=== PATIENT | female | born 1950 | race Caucasian/White ===

== ENCOUNTER 2018-01-04 15:12 | Inpatient (IN) | payer MEDICARE, OTHER ==
[~2018-01-04] VITALS: Ht 167.6 cm; Wt 58.5 kg
[2018-01-04] MEDS ORDERED: fentaNYL CITR 100 MCG/2 ML AMP IVP ONE ×2 (15:40→16:35)
--- NOTE | 2018-01-04 15:40 | ER Report ---
History and Physical Time Seen By MD: 15:25 Hx. of Stated Complaint: PT WAS AT THE [place] [employer] AND FELL ONTO THE LEFT HIP. PT THEN WALKED AND GOT ONTO THE PLANE TO [place]. PT HAVING MUSCLE SPASMS AND PAIN IN THE LEFT SIDE. HPI/ROS CHIEF COMPLAINT: Left hip pain HISTORY OF PRESENT ILLNESS: 67-year-old female who fell in [facility] got up ambulated into the plane had severe pain to her left hip flew back to [place] where she maintains severe pain in her left hip the plane was able to barely ambulatory to wheelchair with a took her to the emergency room patient states she had a mechanical fall slipped while in the airport no head or neck trauma she has pain with extension flexion rotation of the hips left hip only no additional complaints noted REVIEW OF SYSTEMS: Respiratory: No cough, no dyspnea. Cardiovascular: No chest pain, no palpitations. Gastrointestinal: No vomiting, no abdominal pain. Musculoskeletal: Left hip pain Remainder of the 14 system rev: Yes Allergies: Coded Allergies: Penicillins (Verified Allergy, Intermediate, 01/04/18) Reviewed Nurses Notes: Yes Old Medical Records Reviewed: Yes Constitutional Vital Sign - Last 24 Hours 01/04/18 15:33 Temp 98.3 Pulse 98 Resp 18 B/P (MAP) 180/115 Pulse Ox 94 O2 Delivery Room Air Physical Exam General Appearance: The patient is alert, has no immediate need for airway protection and no current signs of toxicity. [ ] Eyes: Pupils equal and round no injection. Respiratory: Chest is non tender, lungs are clear to auscultation. Cardiac: regular rate and rhythm [ ] Gastrointestinal: Abdomen is soft and non tender, no masses, bowel sounds normal. Musculoskeletal: Left hip examination leg is extended shortened and externally rotated pain with extension flexion rotation of the left hip otherwise normal neurovascular intact unremarkable exam Neck is supple and non tender. Normal other than detailed above Skin: No rashes or lesions. [ ] DIFFERENTIAL DIAGNOSIS: After history and physical exam differential diagnosis was considered for left hip fracture Medical Decision Making Data Points Result Diagram: 01/04/18 1550 01/04/18 1550 Laboratory Hematology Test 01/04/18 15:50 Red Blood Count 3.49 M/uL (4.17-5.56) Mean Corpuscular Volume 95.8 fL (80.0-96.0) Mean Corpuscular Hemoglobin 33.5 pg (26.0-33.0) Mean Corpuscular Hemoglobin Concent 34.9 g/dL (32.0-36.0) Red Cell Distribution Width 14.1 % (11.5-14.5) Mean Platelet Volume 8.1 fL (7.2-11.1) Neutrophils (%) (Auto) 66.1 % (39.4-72.5) Lymphocytes (%) (Auto) 21.5 % (17.6-49.6) Monocytes (%) (Auto) 10.6 % (4.1-12.4) Eosinophils (%) (Auto) 0.8 % (0.4-6.7) Basophils (%) (Auto) 1.0 % (0.3-1.4) Nucleated RBC Relative Count (auto) 0.0 /100WBC Neutrophils # (Auto) 3.4 K/uL (2.0-7.4) Lymphocytes # (Auto) 1.1 K/uL (1.3-3.6) Monocytes # (Auto) 0.5 K/uL (0.3-1.0) Eosinophils # (Auto) 0.0 K/uL (0.0-0.5) Basophils # (Auto) 0.0 K/uL (0.0-0.1) Nucleated RBC Absolute Count (auto) 0.00 K/uL Sodium Level 134 mmol/L (137-145) Potassium Level 4.0 mmol/L (3.5-5.0) Chloride Level 95 mmol/L (98-107) Carbon Dioxide Level 29 mmol/L (22-31) Blood Urea Nitrogen 18 mg/dl (7-18) Creatinine 0.90 mg/dl (0.52-1.04) Glomerular Filtration Rate Calc > 60.0 Random Glucose 117 mg/dl (75-110) Calcium Level 9.6 mg/dl (8.4-10.2) Total Bilirubin 0.9 mg/dl (0.2-1.3) Aspartate Amino Transf (AST/SGOT) 53 U/L (0-35) Alanine Aminotransferase (ALT/SGPT) 29 U/L (0-56) Alkaline Phosphatase 112 U/L (0-126) Total Protein 7.5 g/dl (6.3-8.2) Albumin 4.7 g/dl (3.5-5.0) Chemistry Test 01/04/18 15:50 White Blood Count 5.1 k/uL (4.5-11.0) Red Blood Count 3.49 M/uL (4.17-5.56) Hemoglobin 11.7 g/dL (12.0-16.0) Hematocrit 33.5 % (34.0-47.0) Mean Corpuscular Volume 95.8 fL (80.0-96.0) Mean Corpuscular Hemoglobin 33.5 pg (26.0-33.0) Mean Corpuscular Hemoglobin Concent 34.9 g/dL (32.0-36.0) Red Cell Distribution Width 14.1 % (11.5-14.5) Platelet Count 183 K/uL (150-450) Mean Platelet Volume 8.1 fL (7.2-11.1) Neutrophils (%) (Auto) 66.1 % (39.4-72.5) Lymphocytes (%) (Auto) 21.5 % (17.6-49.6) Monocytes (%) (Auto) 10.6 % (4.1-12.4) Eosinophils (%) (Auto) 0.8 % (0.4-6.7) Basophils (%) (Auto) 1.0 % (0.3-1.4) Nucleated RBC Relative Count (auto) 0.0 /100WBC Neutrophils # (Auto) 3.4 K/uL (2.0-7.4) Lymphocytes # (Auto) 1.1 K/uL (1.3-3.6) Monocytes # (Auto) 0.5 K/uL (0.3-1.0) Eosinophils # (Auto) 0.0 K/uL (0.0-0.5) Basophils # (Auto) 0.0 K/uL (0.0-0.1) Nucleated RBC Absolute Count (auto) 0.00 K/uL Glomerular Filtration Rate Calc > 60.0 Calcium Level 9.6 mg/dl (8.4-10.2) Total Bilirubin 0.9 mg/dl (0.2-1.3) Aspartate Amino Transf (AST/SGOT) 53 U/L (0-35) Alanine Aminotransferase (ALT/SGPT) 29 U/L (0-56) Alkaline Phosphatase 112 U/L (0-126) Total Protein 7.5 g/dl (6.3-8.2) Albumin 4.7 g/dl (3.5-5.0) Coagulation Test 01/04/18 15:50 ED Course/Re-evaluation ED Course ED clinical course 58 manual female with an obvious intertrochanteric neck fracture of the left hip will be admitted by orthopedics for surgical intervention Decision to Disposition Date: Jan 04, 2018 Decision to Disposition Time: 16:45 Depart Departure Latest Vital Signs Vital Signs Date Time Temp Pulse Resp B/P (MAP) Pulse Ox O2 Delivery O2 Flow Rate FiO2 01/04/18 15:33 98.3 98 18 180/115 94 Room Air Impression: Primary Impression: Hip fracture Condition: Improved Disposition: Admitted from ER SHANE RIDDLE MD Jan 04, 2018 15:40
--- NOTE | 2018-01-04 15:51 | EKG ---
FACILITY: [facility] [place] PATIENT NAME: SANJAY CLIFTON : [id number] MR: [id number] V: [id number] EXAM DATE: ORDERING PHYSICIAN: SHANE RIDDLE TECHNOLOGIST: NOY Henson Reason : ER TRAUMA Blood Pressure : / mmHG Vent. Rate : 091 BPM Atrial Rate : 091 BPM P-R Int : 154 ms QRS Dur : 092 ms QT Int : 374 ms P-R-T Axes : 061 -40 053 degrees QTc Int : 460 ms Sinus rhythm Nonspecific interventricular conduction delay Left axis deviation Abnormal ECG No previous ECGs available Confirmed by JACK TRINH ([id number]) on 01/04/2018 4:55:03 PM Referred By: Confirmed By:JACK TRINH
[2018-01-04 16:12] LABS: PLATELET COUNT, AUTOMATED 183 K/uL (150-450)
[2018-01-04] MEDS ORDERED: DIAZEPAM 50 MG/10 ML MDV IVP ONE (16:35)
[2018-01-04] MEDS ORDERED: ASPI-1471 PO (16:47)
[2018-01-04] MEDS ORDERED: GABA-549 PO (16:47)
[2018-01-04] MEDS ORDERED: ATOR20TA22 PO (17:01)
--- NOTE | 2018-01-04 17:04 | RADIOLOGY IMAGING REPORT ---
FACILITY: [facility] [place] PATIENT NAME: Kathe Solorio : 1950 MR: [id number] V: [id number] EXAM DATE: ORDERING PHYSICIAN: SHANE RIDDLE TECHNOLOGIST: Location: [facility] Patient: Kathe Solorio : 1950 Visit/Account:[id number] Date of Sevice: 01/04/2018 INDICATION: trauma. DATE: 01/04/2018 4:58 PM. TECHNIQUE: HIP LEFT COMPARISON: None FINDINGS: Displaced left femoral neck fracture. The pelvic ring appears intact. IMPRESSION: Displaced left femoral neck fracture. Report Dictated By: Joel Glasgow MD at 01/04/2018 4:58 PM Report E-Signed By: Joel Glasgow MD at 01/04/2018 5:00 PM WSN:[id number]
[2018-01-04 17:09] LABS: INR 0.94
[2018-01-04 18:01] VITALS: BP 160/98
[2018-01-04] MEDS ORDERED: GABA-503 PO (18:19)
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
[2018-01-04 19:33] VITALS: BP 175/95
[2018-01-04] MEDS ORDERED: ONDANSETRON 4 MG/2 ML VIAL IVP PRN (19:50)
[2018-01-04] MEDS: MORPHINE 2 MG/ML SYR IVP PRN ×2 (20:07→22:56)
[2018-01-04] MEDS: APAP/HYDROCODONE 325/5 TAB PO PRN (20:07)
[2018-01-04] MEDS: NS(*) 0.9% 1000 ML BAG 1,000 ML IV PRN (21:15)
--- NOTE | 2018-01-04 22:23 | RADIOLOGY IMAGING REPORT ---
FACILITY: [facility] PATIENT NAME: Kathe Solorio : 1950 MR: [id number] V: [id number] EXAM DATE: ORDERING PHYSICIAN: JACK TRINH TECHNOLOGIST: Location: [facility] Patient: Kathe Solorio : 1950 Visit/Account:[id number] Date of Sevice: 01/04/2018 PORTABLE CHEST: Indication: Preoperative evaluation. Technique: A single frontal film was obtained. Comparison: None. Skeletal and soft tissue structures: Intact and unremarkable, as visualized. Heart and mediastinum: Within normal limits. Lung dover: There is volume loss in the right lung, with elevation of the right hemidiaphragm, cahni tible with a stated history of partial right lung resection. The left lung is relatively hyperinflate d. No focal acute parenchymal opacities are identified. Pleural spaces: No evidence of effusion or pneumothorax. Impression: No acute process. Report Dictated By: David Piper MD at 01/04/2018 10:17 PM Report E-Signed By: David Piper MD at 01/04/2018 10:20 PM WSN:[id number]
[2018-01-04 22:56] VITALS: BP 130/85
[2018-01-04] MEDS: DIAZEPAM 5 MG TAB PO PRN (23:55)
[2018-01-05] VITALS (7 sets, daily range): BP systolic 125–178; BP diastolic 2–99; Ht 167.6 cm; Wt 58.5 kg
[2018-01-05] MEDS: MORPHINE 2 MG/ML SYR IVP PRN ×4 (00:55→08:17)
[2018-01-05] MEDS: APAP/HYDROCODONE 325/5 TAB PO PRN (02:09)
[2018-01-05] MEDS ORDERED: GABAPENTIN 300 MG CAP PO SCH (09:00)
[2018-01-05] MEDS ORDERED: ATORVASTATIN 10 MG TAB PO SCH (09:00)
[2018-01-05] MEDS ORDERED: MORPHINE 2 MG/ML SYR IVP PRN (09:50)
[2018-01-05] MEDS: MORPHINE 4 MG/ML SDV IVP PRN ×2 (10:48→14:37)
[2018-01-05] MEDS ORDERED: FAMOTIDINE 20 MG TAB PO ONE (12:00)
[2018-01-05] MEDS ORDERED: NORMOSOL R SOLN(*) 1000 ML BAG 1,000 ML IV ONE (12:00)
[2018-01-05] MEDS: NS(*) 0.9% 1000 ML BAG 1,000 ML IV PRN (13:11)
--- NOTE | 2018-01-05 13:15 | Hospitalist Progress Note ---
Subjective Progress Notes Subjective She has complaints of pain this morning. She had no acute events overnight. Patient Complains of: Cardiovascular: No: Chest Pain Respiratory: No: Shortness of Breath Physical Exam Vital Signs Date Time Temp Pulse Resp B/P (MAP) Pulse Ox O2 Delivery O2 Flow Rate FiO2 01/05/18 12:13 97.7 76 16 127/97 (107) 94 Nasal Cannula 0.5 Intake and Output 01/05/18 06:59 # Voids 2 General Appearance: Alert, Awake, No Acute Distress, Afebrile Neuro: No Gross deficits Cardiovascular: Regular Rate and Rhythm Respiratory: No Respiratory Distress, Clear to Auscultation GI: Soft and Non-Tender : Other (cuadra placed) Extremities: Warm, Perfused; No Edema Psych: Alert & Oriented X3, Appropriate Mood & Affect Result Diagram: 01/04/18 1550 01/04/18 1550 Assessment and Plan Problems: (1) Hip fracture Status: Acute Assessment & Plan: She should be a reasonable candidate for surgery and anesthesia. She will be at some increased risk due to her history of lung cancer, previous partial pneumonectomy, and post-op PE. She has been highly functional without significant problems up to this injury. She should have DVT/PE prophylaxis post-op. She plans to go to surgery today to repair the hip. (2) Pulmonary embolism Status: Resolved Assessment & Plan: Due to her history of post-op PE, would recommend she have ~30 days of Xarelto 10mg daily post-op. (3) Lung cancer Status: Resolved Assessment & Plan: She appears to be doing well. She was advised she is "cancer free" at her 5 year check up recently. (4) Hyperlipidemia Status: Chronic Assessment & Plan: Will continue atorvastatin. Exam Sepsis Risk: No Definite Risk MELECIO AGUSTIN VICE PRESIDENT INVESTOR RELATIONS Jan 05, 2018 13:15
[2018-01-05] MEDS ORDERED: ROPIVACAINE 0.2% 20 ML VIAL ONE (13:34)
[2018-01-05] MEDS ORDERED: fentaNYL CITR 100 MCG/2 ML AMP ONE (14:55)
[2018-01-05] MEDS ORDERED: PROPOFOL EMUL(*) 10MG/ML 20 ML 20 ML ONE (14:56)
[2018-01-05] MEDS ORDERED: ONDANSETRON 4 MG/2 ML VIAL ONE (14:56)
[2018-01-05] MEDS ORDERED: LIDOCAINE MPF 1% 5 ML VIAL ONE (14:56)
[2018-01-05] MEDS ORDERED: DEXAMETHASONE SOD 4 MG/ML VIAL ONE (14:56)
[2018-01-05] MEDS ORDERED: EPINEPHrine HCL 1 MG/ML AMP ONE (15:30)
[2018-01-05] MEDS ORDERED: CLINDAMYCIN(*) 900 MG/NS 50 ML 50 ML IVPB ONE (16:00)
[2018-01-05] MEDS ORDERED: LIDOCAINE 2% JELLY 5 ML TUBE ONE (16:08)
[2018-01-05] MEDS ORDERED: MIDAZOLAM 2 MG/2 ML VIAL IVP PRN (16:10)
[2018-01-05] MEDS ORDERED: NS(*) 0.9% 1000 ML BAG 1,000 ML IV PRN (17:55)
[2018-01-05] MEDS ORDERED: ONDANSETRON 4 MG TAB PO PRN (18:00)
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
[2018-01-06] VITALS (8 sets, daily range): BP systolic 116–152; BP diastolic 65–89
--- NOTE | 2018-01-06 02:02 | RADIOLOGY IMAGING REPORT ---
FACILITY: [facility] [place] PATIENT NAME: Kathe Solorio : 1950 MR: [id number] V: [id number] EXAM DATE: ORDERING PHYSICIAN: DAISY BOWDEN TECHNOLOGIST: Location: [facility] Patient: Kathe Solorio : 1950 Visit/Account:[id number] Date of Sevice: 01/05/2018 C-ARM FLUORO 1 HR Indication: Left hip pinning. Procedure: Fluoroscopic guidance was provided for Dr. Bowden. Fluoroscopy dose: 0.30847 mGym2 dose area product Findings: 2 images demonstrate 3 cannulated screws transfixing the left femoral head and neck. IMPRESSION: Fluoroscopy was provided. Report Dictated By: Alicia Hart at 01/06/2018 1:57 AM Report E-Signed By: Alicia Hart at 01/06/2018 1:57 AM WSN:[id number]
[2018-01-06 06:03] LABS: PLATELET COUNT, AUTOMATED 140 K/uL (150-450)
[2018-01-06] MEDS: ATORVASTATIN 10 MG TAB PO SCH ×2 (07:50→21:22)
[2018-01-06] MEDS: APAP/HYDROCODONE 325/5 TAB PO PRN ×3 (08:17→21:22)
[2018-01-06] MEDS: GABAPENTIN 300 MG CAP PO SCH (08:19)
--- NOTE | 2018-01-06 11:43 | Hospitalist Progress Note ---
Subjective Progress Notes Subjective She has no complaints this morning. She had no acute events overnight. Patient Complains of: Cardiovascular: No: Chest Pain Respiratory: No: Shortness of Breath Physical Exam Vital Signs Date Time Temp Pulse Resp B/P (MAP) Pulse Ox O2 Delivery O2 Flow Rate FiO2 01/06/18 08:22 Nasal Cannula 0.5 01/06/18 07:15 98.5 82 16 127/74 (91) 95 Intake and Output 01/06/18 06:59 Intake Total 2393 ml Output Total 1600 ml Balance 793 ml Intake Oral 300 ml IV Total 2093 ml Output Urine Total 1600 ml General Appearance: Alert, Awake, No Acute Distress, Afebrile Neuro: No Gross deficits Cardiovascular: Regular Rate and Rhythm Respiratory: No Respiratory Distress, Clear to Auscultation GI: Soft and Non-Tender Psych: Alert & Oriented X3, Appropriate Mood & Affect Result Diagram: 01/06/1852801/06/18528 Assessment and Plan Problems: (1) Hip fracture Status: Acute Assessment & Plan: She presented with a displaced left femoral neck fracture. She had surgical repair 01/05. She started Xarelto for DVT prophylaxis 01/06. PT/OT have been ordered. (2) Pulmonary embolism Status: Resolved Assessment & Plan: Due to her history of post-op PE, would recommend she have ~30 days of Xarelto 10mg daily post-op. (3) Lung cancer Status: Resolved Assessment & Plan: She appears to be doing well. She was advised she is "cancer free" at her 5 year check up recently. (4) Hyperlipidemia Status: Chronic Assessment & Plan: Will continue atorvastatin. Exam Sepsis Risk: No Definite Risk MELECIO AGUSTIN HORTICULTURAL FARMWORKER Jan 06, 2018 11:43
[2018-01-06] MEDS: RIVAROXABAN 10 MG TAB PO SCH (12:19)
[2018-01-07] MEDS: DIAZEPAM 5 MG TAB PO PRN (01:32)
[2018-01-07 05:27] VITALS: BP 150/96
[2018-01-07] MEDS: APAP/HYDROCODONE 325/5 TAB PO PRN ×2 (05:29→12:01)
--- NOTE | 2018-01-07 06:23 | Hospitalist Progress Note ---
Subjective Progress Notes Subjective She reports doing well. Physical Exam Vital Signs Date Time Temp Pulse Resp B/P (MAP) Pulse Ox O2 Delivery O2 Flow Rate FiO2 01/07/18 05:27 98.6 88 20 150/96 (114) 97 Nasal Cannula 0.5 Intake and Output 01/07/18 06:59 Intake Total 3572 ml Balance 3572 ml Intake Oral 2890 ml IV Total 682 ml # Voids 7 General Appearance: Alert, Awake Cardiovascular: Regular Rate and Rhythm Respiratory: Other (Fairly clear) Result Diagram: 01/06/1852801/06/18528 Assessment and Plan Problems: (1) Hip fracture Status: Acute Assessment & Plan: She had surgical repair 01/[address] Bowden. She started Xarelto for DVT prophylaxis 01/06. (2) Pulmonary embolism Status: Resolved Assessment & Plan: Due to her history of post-op PE, would recommend she have ~30 days of Xarelto 10mg daily post-op. (3) Lung cancer Status: Resolved Assessment & Plan: She appears to be doing well. She was advised she is "cancer free" at her 5 year check up recently. (4) Hyperlipidemia Status: Chronic Assessment & Plan: Will continue atorvastatin. Exam Sepsis Risk: No Definite Risk JACK TRINH MD Jan 07, 2018 06:23
[2018-01-07] MEDS ORDERED: RIV10 PO (06:25)
[2018-01-07] MEDS ORDERED: ASPI-1471 PO (06:25)
[2018-01-07 07:56] VITALS: BP 126/85
[2018-01-07] MEDS: RIVAROXABAN 10 MG TAB PO SCH (09:45)
[2018-01-07] MEDS: GABAPENTIN 300 MG CAP PO SCH (09:46)
== END 2018-01-07 12:15 | DRG 482 ==
LOC: ER 15:44 → MED 17:08
PROVIDERS: ADMIT Orthopaedic Surgery; ATTEND Orthopaedic Surgery
PROC: 0QS734Z Reposition Left Upper Femur with Internal Fixation Device, Percutaneous Approach (ICD-10-PCS; principal; 2018-01-05 16:19)
DX: S72.042A Displaced fracture of base of neck of left femur, initial encounter for closed fracture (principal); E78.5 Hyperlipidemia, unspecified; W18.30XA Fall on same level, unspecified, initial encounter; Y92.520 Airport as the place of occurrence of the external cause; Y99.8 Other external cause status; Z88.0 Allergy status to penicillin; Z85.118 Personal history of other malignant neoplasm of bronchus and lung; Z92.21 Personal history of antineoplastic chemotherapy; Z90.2 Acquired absence of lung [part of]; Z86.711 Personal history of pulmonary embolism; Z87.891 Personal history of nicotine dependence
CPT/HCPCS: 36415; 71045; 76000; 76942; 81001; 82040; 82247; 82310; 82374; 82435; 82565; 82947; 84075; 84132; 84155; 84295; 84450; 84460; 84520; 85025; 85610; 85730; 86850; 86900; 86901; 93005; 96374; 96375; 96376; 97162; 99284; C1713; C1769; J0171; J1100; J2001; J2250; J2270; J2405; J2704; J2795; J3010; J3360; J3490; J7030

== ENCOUNTER 2018-01-06 14:42 | Outpatient (RCR) | payer MEDICARE ==
[2018-01-05 08:32] VITALS: BMI 20.8
[~2018-01-06 14:42] MED LIST: ASPI-1471 PO; ATOR20TA22 PO; GABA-503 PO; GABA-549 PO
[2018-01-07] MEDS ORDERED: ASPI-1471 PO (06:25)
[2018-01-07] MEDS ORDERED: RIV10 PO (06:25)
--- NOTE | 2018-01-23 12:42 | Transitional Care Management ---
Assessment Visit Type: Telephone Visit Spoke with: Oneil escalera Feeling of Well Being: WNL Except Feeling of Well Being Comment: 01/23 reports she is tearful and unhappy with rehab and need for further intervention Pain/Management: WNL Scheduled Follow-Up with [facility]: Yes Community Resources/HHC: 01/23 remains in [facility] TCM Discharge Criteria Transitional Care Comment: 01/06 Tearful about situation. Review need to manage pain, lortab, s.e., mobility with WBAT. Preventing pneumonia, DVT (was on xarelto before( and incision care, s/s infection. Thai states she can stay with him until ready to return to [place]. 01/23 Oneil states she had f/u with Dr Bowden and was told "the screws were not holding, she has spongy bones, needs DIANN". Would like another ortho spec to do her DIANN. She plans to dc from rehab next week and fly home to [place] where her friend will help her get to [facility] to see her PCP for referral and have surgery there. Enc to take all records and x ray reports. Will dc from program as she is leaving the [facility] next week for further tx. ANKTIA ROBERTSON Jan 23, 2018 12:42
== END 2018-01-24 06:56 | disposition home or self-care (01) ==
LOC: TCM 14:42
PROVIDERS: ATTEND Nurse Practitioner
DX: Z02.9 Encounter for administrative examinations, unspecified (principal)